=== PATIENT | female | born 1935 | race Caucasian/White ===

== ENCOUNTER → 2017-02-23 | Outpatient (CLI) | payer MEDICARE, BC ==
[2016-04-17 18:37] VITALS: BP 151/75
[~2017-02-23] MED LIST: AMIT25TA PO
[2017-02-23 10:49] LABS: BASO # 0.1 x10^3/uL (0.0-0.2); BASO % 1 % (0-3); EOS # 0.2 x10^3/uL (0.0-0.7); EOS % 3 % (0-3); HEMATOCRIT 41.7 % (36.0-47.0); HEMOGLOBIN 13.9 g/dL (12.0-15.5); LYMPH # 3.3 x10^3/uL (1.0-4.8); LYMPH % 39 % (24-48); MEAN CORPUSCULAR HEMOGLOBIN 29 pg (25-35); MEAN CORPUSCULAR HGB CONC 33 g/dL (31-37); MEAN CORPUSCULAR VOLUME 88 fL (79-100); MONO # 0.8 x10^3/uL (0.0-1.1); MONO % 9 % (0-9); NEUT # 4.1 x10^3uL (1.8-7.7); NEUT % 48 % (31-73); PLATELET COUNT 293 x10^3/uL (140-400); RED BLOOD COUNT 4.74 x10^6/uL (3.50-5.40); RED CELL DISTRIBUTION WIDTH 13.9 % (11.5-14.5); WHITE BLOOD COUNT 8.4 x10^3/uL (4.0-11.0)
[2017-02-23 10:56] LABS: CALCIUM 9.1 mg/dL (8.5-10.1); CREATININE 1.3 mg/dL (0.6-1.0); GFR 39.4; MAGNESIUM 2.1 mg/dL (1.8-2.4); POTASSIUM 4.1 mmol/L (3.5-5.1)
== END | disposition home or self-care (01) ==
LOC: LAB 10:15
PROVIDERS: ATTEND Nurse Practitioner
DX: R94.39 Abnormal result of other cardiovascular function study (principal)
CPT/HCPCS: 36415; 80048; 83735; 85025; 85610; 85730

== ENCOUNTER → 2017-05-31 | Outpatient (CLI) | payer MEDICARE, BC ==
[2016-04-17 18:37] VITALS: BP 151/75
[2017-05-31 11:57] LABS: BASO % 1 % (0-3); EOS # 0.2 x10^3/uL (0.0-0.7); EOS % 3 % (0-3); HEMATOCRIT 40.3 % (36.0-47.0); HEMOGLOBIN 13.9 g/dL (12.0-15.5); LYMPH # 2.5 x10^3/uL (1.0-4.8); LYMPH % 37 % (24-48); MEAN CORPUSCULAR HEMOGLOBIN 31 pg (25-35); MEAN CORPUSCULAR HGB CONC 35 g/dL (31-37); MEAN CORPUSCULAR VOLUME 89 fL (79-100); MONO # 0.6 x10^3/uL (0.0-1.1); MONO % 9 % (0-9); NEUT # 3.5 x10^3uL (1.8-7.7); NEUT % 51 % (31-73); PLATELET COUNT 309 x10^3/uL (140-400); RED BLOOD COUNT 4.52 x10^6/uL (3.50-5.40); RED CELL DISTRIBUTION WIDTH 13.3 % (11.5-14.5); WHITE BLOOD COUNT 6.8 x10^3/uL (4.0-11.0)
[2017-05-31 12:10] LABS: ALBUMIN 3.6 g/dL (3.4-5.0); CALCIUM 9.4 mg/dL (8.5-10.1); CREATININE 1.2 mg/dL (0.6-1.0); GFR 43.2; PHOSPHORUS 3.9 mg/dL (2.6-4.7); POTASSIUM 4.2 mmol/L (3.5-5.1)
[2017-06-01 22:08] LABS: CALCIUM PTH 9.6 mg/dL (8.7-10.3); CREATININE PTH 1.09 mg/dL (0.57-1.00); PTH INTACT 47 pg/mL (15-65)
== END | disposition home or self-care (01) ==
LOC: LAB 11:23
PROVIDERS: ATTEND Internal Medicine Nephrology
DX: I13.0 Hypertensive heart and chronic kidney disease with heart failure and stage 1 through stage 4 chronic kidney disease, or unspecified chronic kidney disease (principal); N18.3 Chronic kidney disease, stage 3 (moderate); N14.0 Analgesic nephropathy; I50.22 Chronic systolic (congestive) heart failure; D63.1 Anemia in chronic kidney disease; R60.0 Localized edema; Z68.41 Body mass index [BMI] 40.0-44.9, adult
CPT/HCPCS: 36415; 80069; 82728; 83540; 83550; 83735; 83970; 85025

== ENCOUNTER → 2017-09-06 | Outpatient (CLI) | payer MEDICARE, BC ==
[2016-04-17 18:37] VITALS: BP 151/75
[2017-09-06 11:39] LABS: ALBUMIN 3.7 g/dL (3.4-5.0); ALBUMIN/GLOBULIN RATIO 0.9 (1.0-1.7); CALCIUM 9.5 mg/dL (8.5-10.1); CREATININE 1.2 mg/dL (0.6-1.0); GFR 43.1; POTASSIUM 4.2 mmol/L (3.5-5.1); TOTAL BILIRUBIN 0.6 mg/dL (0.2-1.0); TOTAL PROTEIN 7.6 g/dL (6.4-8.2)
== END | disposition home or self-care (01) ==
LOC: LAB 10:47
PROVIDERS: ATTEND Nurse Practitioner
DX: E78.5 Hyperlipidemia, unspecified (principal); E55.9 Vitamin D deficiency, unspecified
CPT/HCPCS: 36415; 80053; 80061; 82306

== ENCOUNTER → 2017-10-09 | Outpatient (CLI) | payer MEDICARE, BC ==
[2016-04-17 18:37] VITALS: BP 151/75
[2017-10-09 11:24] LABS: CALCIUM 9.5 mg/dL (8.5-10.1); CREATININE 1.2 mg/dL (0.6-1.0); GFR 43.1
== END | disposition home or self-care (01) ==
LOC: LAB 09:38
PROVIDERS: ATTEND Nurse Practitioner
DX: I12.9 Hypertensive chronic kidney disease with stage 1 through stage 4 chronic kidney disease, or unspecified chronic kidney disease (principal); N18.3 Chronic kidney disease, stage 3 (moderate)
CPT/HCPCS: 36415; 80048

== ENCOUNTER → 2018-02-25 | Outpatient (CLI) | payer MEDICARE, BC ==
[2016-04-17 18:37] VITALS: BP 151/75
[2018-02-25 12:19] LABS: ALBUMIN 3.5 g/dL (3.4-5.0); ALBUMIN/GLOBULIN RATIO 0.9 (1.0-1.7); CALCIUM 9.4 mg/dL (8.5-10.1); CREATININE 1.1 mg/dL (0.6-1.0); GFR 47.7; TOTAL BILIRUBIN 0.6 mg/dL (0.2-1.0); TOTAL PROTEIN 7.3 g/dL (6.4-8.2)
== END | disposition home or self-care (01) ==
LOC: LAB 11:28
PROVIDERS: ATTEND Nurse Practitioner
DX: E78.5 Hyperlipidemia, unspecified (principal); I13.0 Hypertensive heart and chronic kidney disease with heart failure and stage 1 through stage 4 chronic kidney disease, or unspecified chronic kidney disease; I50.22 Chronic systolic (congestive) heart failure; N18.3 Chronic kidney disease, stage 3 (moderate); D63.1 Anemia in chronic kidney disease; E55.9 Vitamin D deficiency, unspecified; E03.9 Hypothyroidism, unspecified; Z96.653 Presence of artificial knee joint, bilateral; Z68.41 Body mass index [BMI] 40.0-44.9, adult
CPT/HCPCS: 36415; 80053; 80061

== ENCOUNTER 2018-12-21 18:54 | Emergency (ER) | payer MEDICARE, BC ==
[~2018-12-21] VITALS: Ht 154.9 cm; Wt 98.4 kg
--- NOTE | 2018-12-21 19:14 | ED.ADGEN ---
Past History Past Medical History: Anxiety, Arthritis, Constipation, Diverticulitis, Hypertension, Hypothyroid, Other Past Surgical History: Cholecystectomy, Knee Replacement Alcohol Use: None Drug Use: None Adult General Chief Complaint Chief Complaint ".. I ve been having problems with my bowels today... but I ve had years of problems with my bowel... maybe I ripped something down there... ".. " I always have problems.. it is either constipation or it is diarrhea... ever since my colon scopic eval. in 2002.. that doctor said I had too many kids..and everything was stretched out down there.. and *I did nt need another scope exam ever again because I was too old..." HPI HPI Patient is a 83 year old female who presents with severe generalized abdomen pain. Has some localization to Lt lower abdomen and rectal pain. Pt. reports unable to pass stool. States she feel like somethings is stuck in her rectal area. .. Patient has had problems with diarrhea and constipation the past. Has history of pelvic floor issues after of children vaginally. Patient denies any changes in baseline meds or bowel management. No recent travel. No specific ill contacts. Patient has history of multiple antibiotic and medica tion allergies and intolerances. No history of bad food. No history of trauma. No specific history of immunosuppression. Review of Systems Review of Systems Constitutional: Denies fever or chills [] Eyes: Denies change in visual acuity, redness, or eye pain [] HENT: Denies nasal congestion or sore throat [] Respiratory: Denies cough or shortness of breath [] Cardiovascular: No additional information not addressed in HPI [] GI: Complaints of lower abdominal pain, nausea,. Complaints of constipation. I Vomiting, bloody stools or diarrhea [] : Denies dysuria or hematuria [] Musculoskeletal: History of generalized arthritic joint pain] Integument: Denies rash or skin lesions [] Neurologic: Denies headache, focal weakness or sensory changes [] Endocrine: Denies polyuria or polydipsia [] All other systems were reviewed and found to be within normal limits, except as documented in this note. Family History Family History Noncontributory Current Medications Current Medications Current Medications Medications (Trade) Dose Ordered Sig/Edenilson Start Time Stop Time Status Last Admin Dose Admin Acetaminophen (Tylenol) 1,000 mg 1X ONCE 12/21/18 21:00 12/21/18 21:01 DC 12/21/18 21:47 1,000 MG Famotidine (Pepcid Vial) 20 mg 1X ONCE 12/21/18 21:00 12/21/18 21:01 DC 12/21/18 21:46 20 MG Fentanyl Citrate (Fentanyl 2ml Vial) 50 mcg 1X ONCE 12/21/18 21:00 12/21/18 21:01 DC Glycerin (Sani-Supp Adult) 1 supp 1X ONCE 12/22/18 00:00 12/22/18 00:01 DC 12/22/18 00:17 1 SUPP Iohexol (Omnipaque 240 Mg/ml) 50 ml 1X ONCE 12/21/18 23:00 12/21/18 23:01 DC 12/21/18 23:32 50 ML Iohexol (Omnipaque 300 Mg/ml) 75 ml 1X ONCE 12/21/18 23:00 12/21/18 23:01 DC 12/21/18 23:32 75 ML Lactated Ringer's 1,000 ml @ 100 mls/hr Q10H 12/21/18 21:00 12/22/18 02:13 DC 12/21/18 21:47 100 MLS/HR Levofloxacin/ Dextrose 100 ml @ 100 mls/hr 1X ONCE 12/21/18 23:00 12/21/18 23:59 DC 12/22/18 00:09 100 MLS/HR Magnesium Hydroxide (Milk Of Magnesia) 2,400 mg 1X ONCE 12/22/18 00:15 12/22/18 00:16 DC 12/22/18 00:13 2,400 MG Ondansetron HCl (Zofran) 8 mg 1X ONCE 12/21/18 21:00 12/21/18 21:01 DC 12/21/18 21:46 8 MG Allergies Allergies Allergies Coded Allergies Type Severity Reaction Last Updated Verified Cephalosporins Allergy Intermediate Hives 12/21/18 Yes Penicillins Allergy Intermediate Hives 12/21/18 Yes cephalexin Allergy Intermediate Hives 12/21/18 Yes Physical Exam Physical Exam Constitutional: Moderate acute distress, non-toxic appearance. [] HENT: Normocephalic, atraumatic, bilateral external ears normal, oropharynx moist, no oral exudates, nose normal. [] Eyes: PERRLA, EOMI, conjunctiva normal, no discharge. [] Neck: Normal range of motion, no tenderness, supple, no stridor. [] Cardiovascular:Heart rate regular rhythm, no murmur []PMI to the right. Lungs & Thorax: Bilateral breath sounds equal apex, basilar crackles on auscultation [] Abdomen: Bowel sounds normal, soft, generalized abdomen pain, distention, lower pelvic tenderness, , no pulsatile masses. . Exam shows small hemorrhoids- they do not appear to be excessively inflamed. Had a very large hard impacted stool ball. This was disimpacted digitally. A glycerin suppository placed. Patient did report relief after disimpacted. Old surgery scars. Skin: Warm, dry, no erythema, no rash. [] Poor turgor Back: No tenderness, no CVA tenderness. [] Extremities: No tenderness, no cyanosis, no clubbing, ROM intact, no edema. [] Scar right hip. Arthritic changes Neurologic: Alert and oriented X 3, normal motor function, normal sensory function, no focal deficits noted. [] Psychologic: Affect anxious, judgement normal, mood normal. [] Current Patient Data Vital Signs Vital Signs Date Time Temp Pulse Resp B/P (MAP) Pulse Ox O2 Delivery O2 Flow Rate FiO2 12/22/18 02:10 88 18 147/62 (90) 97 Room Air 12/21/18 19:00 97.5 Lab Results Laboratory Tests Test 12/21/18 20:25 12/21/18 20:30 White Blood Count 7.4 x10^3/uL (4.0-11.0) Red Blood Count 4.50 x10^6/uL (3.50-5.40) Hemoglobin 13.7 g/dL (12.0-15.5) Hematocrit 40.7 % (36.0-47.0) Mean Corpuscular Volume 90 fL (79-100) Mean Corpuscular Hemoglobin 31 pg (25-35) Mean Corpuscular Hemoglobin Concent 34 g/dL (31-37) Red Cell Distribution Width 12.6 % (11.5-14.5) Platelet Count 283 x10^3/uL (140-400) Neutrophils (%) (Auto) 63 % (31-73) Lymphocytes (%) (Auto) 26 % (24-48) Monocytes (%) (Auto) 8 % (0-9) Eosinophils (%) (Auto) 2 % (0-3) Basophils (%) (Auto) 1 % (0-3) Neutrophils # (Auto) 4.7 x10^3uL (1.8-7.7) Lymphocytes # (Auto) 1.9 x10^3/uL (1.0-4.8) Monocytes # (Auto) 0.6 x10^3/uL (0.0-1.1) Eosinophils # (Auto) 0.2 x10^3/uL (0.0-0.7) Basophils # (Auto) 0.0 x10^3/uL (0.0-0.2) Prothrombin Time 10.6 SEC (9.4-11.4) Prothrombin Time INR 1.0 (0.9-1.1) PTT 26 SEC (23-33) Sodium Level 141 mmol/L (136-145) Potassium Level 3.8 mmol/L (3.5-5.1) Chloride Level 106 mmol/L (98-107) Carbon Dioxide Level 27 mmol/L (21-32) Anion Gap 8 (6-14) Blood Urea Nitrogen 14 mg/dL (7-20) Creatinine 1.0 mg/dL (0.6-1.0) Estimated GFR (Cockcroft-Gault) 53.1 Glucose Level 98 mg/dL (70-99) Calcium Level 9.6 mg/dL (8.5-10.1) Total Bilirubin 0.5 mg/dL (0.2-1.0) Direct Bilirubin 0.2 mg/dL (0.0-0.2) Aspartate Amino Transferase (AST) 35 U/L (15-37) Alanine Aminotransferase (ALT) 52 U/L (14-59) Alkaline Phosphatase 82 U/L (46-116) Creatine Kinase 72 U/L (26-192) Troponin I Quantitative < 0.017 ng/mL (0-0.055) Total Protein 6.9 g/dL (6.4-8.2) Albumin 3.4 g/dL (3.4-5.0) Amylase Level 58 U/L (25-115) Lipase 160 U/L (73-393) Urine Opiates Screen Neg (NEG) Urine Methadone Screen Neg (NEG) Urine Barbiturates Neg (NEG) Urine Phencyclidine Screen Neg (NEG) Urine Amphetamine/Methamphetamine Neg (NEG) Urine Benzodiazepines Screen Neg (NEG) Urine Cocaine Screen Neg (NEG) Urine Cannabinoids Screen Neg (NEG) Urine Ethyl Alcohol Neg (NEG) Urine Collection Type Unknown Urine Color Yellow Urine Clarity Cloudy Urine pH 5.5 Urine Specific [place] 1.015 Urine Protein Neg (NEG-TRACE) Urine Glucose (UA) Neg mg/dL (NEG) Urine Ketones (Stick) Neg mg/dL (NEG) Urine Blood Trace (NEG) Urine Nitrite Pos (NEG) Urine Bilirubin Neg (NEG) Urine Urobilinogen Dipstick 0.2 mg/dL (0.2 mg/dL) Urine Leukocyte Esterase Small (NEG) Urine RBC Occ /HPF (0-2) Urine WBC 11-20 /HPF (0-4) Urine Squamous Epithelial Cells Mod /LPF Urine Bacteria Mod /HPF (0-FEW) EKG EKG My interpretation EKG shows a sinus rhythm at 73 with bundle branch block. Contour abnormality.[] Radiology/Procedures Radiology/Procedures [][address] [id number] IMAGING REPORT Signed PATIENT: DARINEL PERES ACCOUNT: [id number] : 1935 LOCATION: ER AGE: 83 SEX: F EXAM STATUS: REG ER ORD. PHYSICIAN: STEVE CASSIDY MD REASON: CONSTIPATION, LUQ ABDOMINAL PAIN PROCEDURE: ACUTE ABDOMEN SERIES Acute abdominal series with PA chest: Reason for examination: Constipation. Left upper quadrant abdominal pain. Comparison is made to previous study dated 12/26/2012. The heart size is normal. Mediastinum is unremarkable. Lung bal are clear. No acute bony abnormalities are seen in the chest. In the abdomen, there is no gross organomegaly. Gallbladder surgically absent with surgical clips in the right upper quadrant. There is no gross organomegaly. The bowel gas pattern is nonspecific with no abnormally dilated loops of bowel or evidence of bowel obstruction. There are calcifications probably representing phleboliths in the lower pelvis. But there is a new calcification in the left pelvis adjacent to a previously identified calcification which could represent a distal left ureteral calculus which appears to measure approximately 3.6 mm in greatest dimension. There are postop changes at the right hip. No acute bony abnormalities are seen. IMPRESSION: No acute cardiopulmonary disease. Nonspecific bowel gas pattern. Calcifications in the pelvis consistent with phleboliths but there is a new 3.6 mm calculus in the left pelvis which may represent a distal left ureteral calculus. Electronically signed by: Concepcion Roberts MD (12/21/2018 9:39 PM) [facility] DICTATED AND SIGNED BY: CONCEPCION ROBERTS MD DATE: 12/21/182138 CC: STEVE CASSIDY MD; LIU BRICE ~[facility] [address] [place] [id number] IMAGING REPORT Signed PATIENT: DARINEL PERES ACCOUNT: [id number] : 1935 LOCATION: ER AGE: 83 SEX: F EXAM STATUS: REG ER ORD. PHYSICIAN: STEVE CASSIDY MD REASON: pain in pelvis/rectal region, constipation x 4 days PROCEDURE: CT ABD PELV W/ORAL&IV CONTRAST EXAM: CT Abdomen and Pelvis with IV contrast CLINICAL HISTORY: Pelvic, rectal pain. 4 day history of constipation. History of cholecystectomy and appendectomy.. COMPARISON: Acute abdominal series 12/21/2018 TECHNIQUE: Helical CT of the abdomen and pelvis was performed following the administration of intravenous contrast. Axial, coronal and sagittal reformatted images were generated. PQRS compliance statement - One or more of the following individualized dose reduction techniques were utilized for this study: 1. Automated exposure control 2. Adjustment of the mA and/or kV according to patient size 3. Use of iterative reconstruction technique FINDINGS: Lower chest: Subpleural reticular opacities in the lower lobes likely scarring/atelectasis. Small hiatal hernia. Abdomen and Pelvis: Diffuse hepatic hypoattenuation may be seen with hepatic steatosis. Cholecystectomy clips are seen. No biliary ductal dilatation. Pancreas is unremarkable. Spleen is normal in appearance. Adrenal glands are unremarkable. Symmetric nephrograms. No focal renal lesion. No hydronephrosis. No hydroureter. Bladder is moderately distended but otherwise unremarkable. Moderate colonic stool content is seen most prominent in the rectum where it may represent a stercolith/fecalith. No associated inflammatory change. There has been an appendectomy. No small or large bowel dilatation to suggest bowel obstruction. Several prominent upper abdominal collaterals are seen. Changes of mesh hernia repair of a ventral abdominal hernia in the upper abdomen. Small fat-containing periumbilical hernia. Bones: Degenerative changes of the spine are seen. Changes of right hip arthroplasty results in streak artifact limiting evaluation of the pelvis. IMPRESSION: 1. Rounded appearance of the stool within the rectum and distal sigmoid a represent stercolith/fecalith, without evidence for associated inflammatory change. 2. Hepatic hypoattenuation may be seen with hepatic steatosis. Electronically signed by: Gregory Luna MD (12/21/2018 11:25 PM) [facility] DICTATED AND SIGNED BY: GREGORY LUNA MD DATE: 12/21/18 6091 CC: STEVE CASSIDY MD; LIU BRICE ~ Course & Med Decision Making Course & Med Decision Making Pertinent Labs and Imaging studies reviewed. (See chart for details) After discussed impaction, patient reports marked improvement. She is to stay on on bowel management program as previous directed. Patient to take Levaquin 500 mg daily for 5 days for UTI. Patient follow-up primary care. Patient return if any concerns [] Final Impression Final Impression 1. Abdomen /Rectal Pain[] 2. Constipation/ Stool Impaction 3. UTI 4. Hemorrhoids Dragon Disclaimer Dragon Disclaimer This electronic medical record was generated, in whole or in part, using a voice recognition dictation system. Discharge Summary Visit Information Final Diagnosis Problems Medical Problems: (1) Constipation Status: Acute (2) Fecal impaction in rectum Status: Acute (3) Urinary tract bacterial infections Status: Acute Brief Hospital Course Allergies Allergies Coded Allergies Type Severity Reaction Last Updated Verified Cephalosporins Allergy Intermediate Hives 12/21/18 Yes Penicillins Allergy Intermediate Hives 12/21/18 Yes cephalexin Allergy Intermediate Hives 12/21/18 Yes Vital Signs Vital Signs Date Time Temp Pulse Resp B/P (MAP) Pulse Ox O2 Delivery O2 Flow Rate FiO2 12/22/18 02:10 88 18 147/62 (90) 97 Room Air 12/21/18 19:00 97.5 Lab Results Laboratory Tests Test 12/21/18 20:25 12/21/18 20:30 White Blood Count 7.4 x10^3/uL (4.0-11.0) Red Blood Count 4.50 x10^6/uL (3.50-5.40) Hemoglobin 13.7 g/dL (12.0-15.5) Hematocrit 40.7 % (36.0-47.0) Mean Corpuscular Volume 90 fL (79-100) Mean Corpuscular Hemoglobin 31 pg (25-35) Mean Corpuscular Hemoglobin Concent 34 g/dL (31-37) Red Cell Distribution Width 12.6 % (11.5-14.5) Platelet Count 283 x10^3/uL (140-400) Neutrophils (%) (Auto) 63 % (31-73) Lymphocytes (%) (Auto) 26 % (24-48) Monocytes (%) (Auto) 8 % (0-9) Eosinophils (%) (Auto) 2 % (0-3) Basophils (%) (Auto) 1 % (0-3) Neutrophils # (Auto) 4.7 x10^3uL (1.8-7.7) Lymphocytes # (Auto) 1.9 x10^3/uL (1.0-4.8) Monocytes # (Auto) 0.6 x10^3/uL (0.0-1.1) Eosinophils # (Auto) 0.2 x10^3/uL (0.0-0.7) Basophils # (Auto) 0.0 x10^3/uL (0.0-0.2) Prothrombin Time 10.6 SEC (9.4-11.4) Prothromb Time International Ratio 1.0 (0.9-1.1) Activated Partial Thromboplast Time 26 SEC (23-33) Sodium Level 141 mmol/L (136-145) Potassium Level 3.8 mmol/L (3.5-5.1) Chloride Level 106 mmol/L (98-107) Carbon Dioxide Level 27 mmol/L (21-32) Anion Gap 8 (6-14) Blood Urea Nitrogen 14 mg/dL (7-20) Creatinine 1.0 mg/dL (0.6-1.0) Estimated GFR (Cockcroft-Gault) 53.1 Glucose Level 98 mg/dL (70-99) Calcium Level 9.6 mg/dL (8.5-10.1) Total Bilirubin 0.5 mg/dL (0.2-1.0) Direct Bilirubin 0.2 mg/dL (0.0-0.2) Aspartate Amino Transf (AST/SGOT) 35 U/L (15-37) Alanine Aminotransferase (ALT/SGPT) 52 U/L (14-59) Alkaline Phosphatase 82 U/L (46-116) Creatine Kinase 72 U/L (26-192) Troponin I Quantitative < 0.017 ng/mL (0-0.055) Total Protein 6.9 g/dL (6.4-8.2) Albumin 3.4 g/dL (3.4-5.0) Amylase Level 58 U/L (25-115) Lipase 160 U/L (73-393) Urine Opiates Screen Neg (NEG) Urine Methadone Screen Neg (NEG) Urine Barbiturates Neg (NEG) Urine Phencyclidine Screen Neg (NEG) Urine Amphetamine/Methamphetamine Neg (NEG) Urine Benzodiazepines Screen Neg (NEG) Urine Cocaine Screen Neg (NEG) Urine Cannabinoids Screen Neg (NEG) Urine Ethyl Alcohol Neg (NEG) Urine Collection Type Unknown Urine Color Yellow Urine Clarity Cloudy Urine pH 5.5 Urine Specific [place] 1.015 Urine Protein Neg (NEG-TRACE) Urine Glucose (UA) Neg mg/dL (NEG) Urine Ketones (Stick) Neg mg/dL (NEG) Urine Blood Trace (NEG) Urine Nitrite Pos (NEG) Urine Bilirubin Neg (NEG) Urine Urobilinogen Dipstick 0.2 mg/dL (0.2 mg/dL) Urine Leukocyte Esterase Small (NEG) Urine RBC Occ /HPF (0-2) Urine WBC 11-20 /HPF (0-4) Urine Squamous Epithelial Cells Mod /LPF Urine Bacteria Mod /HPF (0-FEW) Brief Hospital Course Ms. Peres is a 83 old female who presented with generalized abdomen pain. Found to have UTI and fecal impaction. Discharge Information Condition at Discharge: Improved, Stable Disposition/Orders: D/C to Home Dischare Medications Current Medications Lactated Ringer's 1,000 ml @ 100 mls/hr Q10H IV Last administered on 12/21/18at 21:47; Admin Dose 100 MLS/HR; Start 12/21/18 at 21:00; Stop 12/22/18 at 02:13; Status DC Ondansetron HCl (Zofran) 8 mg 1X ONCE IV Last administered on 12/21/18at 21:46; Admin Dose 8 MG; Start 12/21/18 at 21:00; Stop 12/21/18 at 21:01; Status DC Famotidine (Pepcid Vial) 20 mg 1X ONCE IVP Last administered on 12/21/18at 21:46; Admin Dose 20 MG; Start 12/21/18 at 21:00; Stop 12/21/18 at 21:01; Status DC Magnesium Hydroxide (Milk Of Magnesia) 2,400 mg 1X ONCE PO Last administered on 12/21/18at 21:47; Admin Dose 2,400 MG; Start 12/21/18 at 21:00; Stop 12/21/18 at 21:01; Status DC Acetaminophen (Tylenol) 1,000 mg 1X ONCE PO Last administered on 12/21/18at 21:47; Admin Dose 1,000 MG; Start 12/21/18 at 21:00; Stop 12/21/18 at 21:01; Status DC Fentanyl Citrate (Fentanyl 2ml Vial) 50 mcg 1X ONCE IV ; Start 12/21/18 at 21:00; Stop 12/21/18 at 21:01; Status DC Iohexol (Omnipaque 240 Mg/ml) 50 ml STK-MED ONCE .ROUTE ; Start 12/21/18 at 20:49; Stop 12/21/18 at 20:50; Status DC Iohexol (Omnipaque 240 Mg/ml) 50 ml 1X ONCE PO Last administered on 12/21/18at 23:32; Admin Dose 50 ML; Start 12/21/18 at 23:00; Stop 12/21/18 at 23:01; Status DC Iohexol (Omnipaque 300 Mg/ml) 75 ml 1X ONCE IV Last administered on 12/21/18at 23:32; Admin Dose 75 ML; Start 12/21/18 at 23:00; Stop 12/21/18 at 23:01; Status DC Levofloxacin/ Dextrose 100 ml @ 100 mls/hr 1X ONCE IV Last administered on 12/22/18at 00:09; Admin Dose 100 MLS/HR; Start 12/21/18 at 23:00; Stop 12/21/18 at 23:59; Status DC Glycerin (Sani-Supp Adult) 1 supp 1X ONCE OK Last administered on 12/22/18at 00:17; Admin Dose 1 SUPP; Start 12/22/18 at 00:00; Stop 12/22/18 at 00:01; Status DC Magnesium Hydroxide (Milk Of Magnesia) 2,400 mg 1X ONCE PO Last administered on 12/22/18at 00:13; Admin Dose 2,400 MG; Start 12/22/18 at 00:15; Stop 12/22/18 at 00:16; Status DC Active Scripts Active Suppository (Glycerin) 1 Each Supp.rect 1 Each RC DAILY PRN Levaquin (Levofloxacin) 500 Mg Tablet 500 Mg PO DAILY 5 Days Amitriptyline Hcl 25 Mg Tablet 1 Tab PO QHS Dragon Disclaimer This chart was dictated in whole or in part using Voice Recognition software in a busy, high-work load, and often noisy Emergency Department environment. It may contain unintended and wholly unrecognized errors or omissions. STEVE CASSIDY MD Dec 21, 2018 19:14
[2018-12-21] MEDS ORDERED: IOHEXOL 240 MG/ML 50ML VIAL. ONE (20:49)
[2018-12-21 20:54] LABS: BACTERIA,URINE MOD /HPF (0-FEW); BILIRUBIN,URINE NEG (NEG); CLARITY,URINE CLOUDY; COLOR,URINE YELLOW; GLUCOSE,URINE NEG (NEG); NITRITE,URINE POS (NEG); RBC,URINE OCC /HPF (0-2); SQUAMOUS EPITHELIAL CELL,UR MOD /LPF; UROBILINOGEN,URINE 0.2 mg/dL (0.2 mg/dL)
[2018-12-21] MEDS ORDERED: ACETAMINOPHEN 500 MG TABLET PO ONE (21:00)
[2018-12-21] MEDS ORDERED: FAMOTIDINE 20 MG/2 ML VIAL IVP ONE (21:00)
[2018-12-21] MEDS ORDERED: IV RINGERS SOLUTION,LACTATED 1,000 ML IV SCH (21:00)
[2018-12-21] MEDS ORDERED: ONDANSETRON PF 4 MG/2 ML VIAL. IV ONE (21:00)
[2018-12-21] MEDS ORDERED: MAGNESIUM HYDROXIDE 2,400 MG/30 ML ORAL.SUSP. PO ONE (21:00)
[2018-12-21 21:06] LABS: BASO % 1 % (0-3); EOS # 0.2 x10^3/uL (0.0-0.7); EOS % 2 % (0-3); HEMATOCRIT 40.7 % (36.0-47.0); HEMOGLOBIN 13.7 g/dL (12.0-15.5); LYMPH # 1.9 x10^3/uL (1.0-4.8); LYMPH % 26 % (24-48); MEAN CORPUSCULAR HEMOGLOBIN 31 pg (25-35); MEAN CORPUSCULAR HGB CONC 34 g/dL (31-37); MEAN CORPUSCULAR VOLUME 90 fL (79-100); MONO # 0.6 x10^3/uL (0.0-1.1); MONO % 8 % (0-9); NEUT # 4.7 x10^3uL (1.8-7.7); NEUT % 63 % (31-73); PLATELET COUNT 283 x10^3/uL (140-400); RED CELL DISTRIBUTION WIDTH 12.6 % (11.5-14.5); WHITE BLOOD COUNT 7.4 x10^3/uL (4.0-11.0)
[2018-12-21 21:11] LABS: ALBUMIN 3.4 g/dL (3.4-5.0); BARBITURATES NEG (NEG); BENZODIAZEPINES NEG (NEG); CALCIUM 9.6 mg/dL (8.5-10.1); CANNABINOIDS NEG (NEG); COCAINE NEG (NEG); DIRECT BILIRUBIN 0.2 mg/dL (0.0-0.2); GFR 53.1; METHADONE NEG (NEG); OPIATES NEG (NEG); PHENCYCLIDINE NEG (NEG); POTASSIUM 3.8 mmol/L (3.5-5.1); TOTAL BILIRUBIN 0.5 mg/dL (0.2-1.0); TOTAL PROTEIN 6.9 g/dL (6.4-8.2)
[2018-12-21 21:16] LABS: AMPHETAMINE/METHAMPHETAMINE NEG (NEG)
--- NOTE | 2018-12-21 21:42 | RAD ---
Acute abdominal series with PA chest: Reason for examination: Constipation. Left upper quadrant abdominal pain. Comparison is made to previous study dated 12/26/2012. The heart size is normal. Mediastinum is unremarkable. Lung bal are clear. No acute bony abnormalities are seen in the chest. In the abdomen, there is no gross organomegaly. Gallbladder surgically absent with surgical clips in the right upper quadrant. There is no gross organomegaly. The bowel gas pattern is nonspecific with no abnormally dilated loops of bowel or evidence of bowel obstruction. There are calcifications probably representing phleboliths in the lower pelvis. But there is a new calcification in the left pelvis adjacent to a previously identified calcification which could represent a distal left ureteral calculus which appears to measure approximately 3.6 mm in greatest dimension. There are postop changes at the right hip. No acute bony abnormalities are seen. IMPRESSION: No acute cardiopulmonary disease. Nonspecific bowel gas pattern. Calcifications in the pelvis consistent with phleboliths but there is a new 3.6 mm calculus in the left pelvis which may represent a distal left ureteral calculus. Electronically signed by: Concepcion Lewis MD (12/21/2018 9:39 PM) [facility]
[2018-12-21] MEDS ORDERED: IOHEXOL 300 MG/ML 75 ML VIAL. IV ONE (23:00)
[2018-12-21] MEDS ORDERED: IOHEXOL 240 MG/ML 50ML VIAL. PO ONE (23:00)
--- NOTE | 2018-12-21 23:28 | RAD ---
EXAM: CT Abdomen and Pelvis with IV contrast CLINICAL HISTORY: Pelvic, rectal pain. 4 day history of constipation. History of cholecystectomy and appendectomy.. COMPARISON: Acute abdominal series 12/21/2018 TECHNIQUE: Helical CT of the abdomen and pelvis was performed following the administration of intravenous contrast. Axial, coronal and sagittal reformatted images were generated. PQRS compliance statement - One or more of the following individualized dose reduction techniques were utilized for this study: 1. Automated exposure control 2. Adjustment of the mA and/or kV according to patient size 3. Use of iterative reconstruction technique FINDINGS: Lower chest: Subpleural reticular opacities in the lower lobes likely scarring/atelectasis. Small hiatal hernia. Abdomen and Pelvis: Diffuse hepatic hypoattenuation may be seen with hepatic steatosis. Cholecystectomy clips are seen. No biliary ductal dilatation. Pancreas is unremarkable. Spleen is normal in appearance. Adrenal glands are unremarkable. Symmetric nephrograms. No focal renal lesion. No hydronephrosis. No hydroureter. Bladder is moderately distended but otherwise unremarkable. Moderate colonic stool content is seen most prominent in the rectum where it may represent a stercolith/fecalith. No associated inflammatory change. There has been an appendectomy. No small or large bowel dilatation to suggest bowel obstruction. Several prominent upper abdominal collaterals are seen. Changes of mesh hernia repair of a ventral abdominal hernia in the upper abdomen. Small fat-containing periumbilical hernia. Bones: Degenerative changes of the spine are seen. Changes of right hip arthroplasty results in streak artifact limiting evaluation of the pelvis. IMPRESSION: 1. Rounded appearance of the stool within the rectum and distal sigmoid a represent stercolith/fecalith, without evidence for associated inflammatory change. 2. Hepatic hypoattenuation may be seen with hepatic steatosis. Electronically signed by: Gregory Betancur MD (12/21/2018 11:25 PM) [facility]
[2018-12-22] MEDS ORDERED: GLYCERIN ADULT 1 SUPP.RECT. PR ONE
[2018-12-22] MEDS ORDERED: MAGNESIUM HYDROXIDE 2,400 MG/30 ML ORAL.SUSP. PO ONE (00:15)
[2018-12-22] MEDS ORDERED: LEVO500T59 PO (00:56)
[2018-12-22] MEDS ORDERED: GLYC1SUP61 RC (00:58)
[2018-12-22 02:10] VITALS: BP 147/62
--- NOTE | 2018-12-22 07:02 | EKG ---
[address] [address] Test Date: 2018-12-21 Test Time: 21:07:13 Pat Name: DARINEL SANTOS Department: Room: Gender: F Interventional Technologist: : 1935 Requested By: STEVE CASSIDY Order Number: [id number] Reading MD: Measurements Intervals [place] Rate: 73 P: 137 DE: 172 QRS: -172 QRSD: 120 T: 101 QT: 406 QTc: 451 Interpretive Statements SINUS RHYTHM ABNORMAL RIGHT SUPERIOR AXIS DEVIATION R-S TRANSITION ZONE IN V LEADS DISPLACED TO THE LEFT CONSIDER RIGHT VENTRICULAR HYPERTROPHY QRS(T) CONTOUR ABNORMALITY CONSISTENT WITH HIGH LATERAL INFARCT AGE UNDETERMINED CONSIDER INFERIOR INFARCT ABNORMAL ECG RI6.01 No previous ECG available for comparison
== END 2018-12-22 02:10 | disposition home or self-care (01) ==
LOC: ER 18:54
DX: K59.00 Constipation, unspecified (principal); N39.0 Urinary tract infection, site not specified; B97.89 Other viral agents as the cause of diseases classified elsewhere; K64.9 Unspecified hemorrhoids; R11.2 Nausea with vomiting, unspecified; F41.9 Anxiety disorder, unspecified; M19.90 Unspecified osteoarthritis, unspecified site; I10 Essential (primary) hypertension; E03.9 Hypothyroidism, unspecified; Z79.899 Other long term (current) drug therapy; Z90.49 Acquired absence of other specified parts of digestive tract; Z88.1 Allergy status to other antibiotic agents; Z88.0 Allergy status to penicillin
CPT/HCPCS: 36415; 74022; 74177; 80048; 80076; 80307; 81001; 82150; 82550; 83690; 84484; 85025; 85610; 85730; 87086; 93005; 96361; 96365; 96366; 96375; 99285; J1956; J2405; J3490; J7120; Q9966; Q9967

== ENCOUNTER → 2019-02-25 | Outpatient (CLI) | payer MEDICARE, BC ==
[~2019-02-25] MED LIST changes: +GLYC1SUP61 RC; +LEVO500T59 PO
[2019-02-25 11:51] LABS: HEMOGLOBIN 13.6 g/dL (12.0-15.5)
[2019-02-25 12:09] LABS: ALBUMIN 3.4 g/dL (3.4-5.0); CALCIUM 9.3 mg/dL (8.5-10.1); CREATININE 1.1 mg/dL (0.6-1.0); GFR 47.6; PHOSPHORUS 3.7 mg/dL (2.6-4.7); POTASSIUM 3.8 mmol/L (3.5-5.1)
[2019-02-26 04:09] LABS: CALCIUM PTH 9.7 mg/dL (8.7-10.3); CREATININE PTH 0.95 mg/dL (0.57-1.00); PTH INTACT 43 pg/mL (15-65)
== END | disposition home or self-care (01) ==
LOC: LAB 11:08
PROVIDERS: ATTEND Internal Medicine Nephrology
DX: I12.9 Hypertensive chronic kidney disease with stage 1 through stage 4 chronic kidney disease, or unspecified chronic kidney disease (principal); N18.3 Chronic kidney disease, stage 3 (moderate); N14.0 Analgesic nephropathy; D63.1 Anemia in chronic kidney disease; R60.0 Localized edema; Z68.41 Body mass index [BMI] 40.0-44.9, adult
CPT/HCPCS: 36415; 80069; 82306; 83970; 85014; 85018

== ENCOUNTER 2019-04-30 14:25 | Emergency (ER) | payer MEDICARE, BC ==
[~2019-04-30] VITALS: Ht 154.9 cm; Wt 98.4 kg
[2019-04-30] MEDS ORDERED: IV NORMAL SALINE 1,000ML 1,000 ML IV ONE (15:15)
--- NOTE | 2019-04-30 15:29 | PHYS DOC ---
Past History Past Medical History: Anxiety, Arthritis, Constipation, Diverticulitis, Hypertension, Hypothyroid, Other Past Surgical History: Appendectomy, Cholecystectomy, Hysterectomy Alcohol Use: None Drug Use: None Adult General Chief Complaint Chief Complaint: CONSTIPATION HPI HPI 83-year-old female presents with concern for constipation. She is not a bowel movement for 5 days. Her PCP sent her to the emergency room. She has been able to manually extract a small amount large stool. She feels like she needs to go but can't. She has had this in the past but been well. She denies any other complaints. Review of Systems Review of Systems Constitutional: Denies fever or chills [] Eyes: Denies change in visual acuity, redness, or eye pain [] HENT: Denies nasal congestion or sore throat [] Respiratory: Denies cough or shortness of breath [] Cardiovascular: No additional information not addressed in HPI [] GI: constipation. Denies abdominal pain, nausea, vomiting, bloody stools or diarrhea [] : Denies dysuria or hematuria [] Musculoskeletal: Denies back pain or joint pain [] Integument: Denies rash or skin lesions [] Neurologic: Denies headache, focal weakness or sensory changes [] Endocrine: Denies polyuria or polydipsia [] All other systems were reviewed and found to be within normal limits, except as documented in this note. Current Medications Current Medications Current Medications Medications (Trade) Dose Ordered Sig/Edenilson Start Time Stop Time Status Last Admin Dose Admin Sodium Chloride 1,000 ml @ 1,000 mls/hr 1X ONCE 04/30/19 15:15 04/30/19 16:14 Allergies Allergies Allergies Coded Allergies Type Severity Reaction Last Updated Verified Cephalosporins Allergy Intermediate Hives 12/21/18 Yes Penicillins Allergy Intermediate Hives 12/21/18 Yes cephalexin Allergy Intermediate Hives 12/21/18 Yes Physical Exam Physical Exam Constitutional: Well developed, well nourished, no acute distress, non-toxic appearance. [] HENT: Normocephalic, atraumatic, bilateral external ears normal, oropharynx moist, no oral exudates, nose normal. [] Eyes: PERRLA, EOMI, conjunctiva normal, no discharge. [] Neck: Normal range of motion, no tenderness, supple, no stridor. [] Cardiovascular:Heart rate regular rhythm, no murmur [] Lungs & Thorax: Bilateral breath sounds clear to auscultation [] Abdomen: Bowel sounds normal, soft, no tenderness, no masses, no pulsatile masses. [] Skin: Warm, dry, no erythema, no rash. [] Back: No tenderness, no CVA tenderness. [] Extremities: No tenderness, no cyanosis, no clubbing, ROM intact, no edema. [] Neurologic: Alert and oriented X 3, normal motor function, normal sensory function, no focal deficits noted. [] Psychologic: Affect normal, judgement normal, mood normal. [] EKG EKG [] Radiology/Procedures Radiology/Procedures [] Impressions: EXAM: CHEST 1 VIEW History: Constipation COMPARISON: 12/21/2018 TECHNIQUE: Single portable radiograph of the chest Findings/ impression: Air distended bowel loops identified in the right mid abdomen. Feces and gas noted in the rectum. Nonspecific bowel gas pattern. CT abdomen pelvis can be considered for further evaluation. Electronically signed by: Waqas Kenny MD (04/30/2019 3:31 PM) [id number] DICTATED AND SIGNED BY: WAQAS KENNY MD DATE: 04/30/19 1531 CC: MARYELLEN KAPLAN DO; LIU BRICE ~ Course & Med Decision Making Course & Med Decision Making Pertinent Labs and Imaging studies reviewed. (See chart for details) The patient's enema did not work. She continued a fullness in the rectum. The nurse was able to do a digital rectal massage and patient did have stool output. Her KUB was unremarkable except for the rectal vault. The patient felt much better. She feels that she can go home now. She is stable for discharge at this time. [] Dragon Disclaimer Dragon Disclaimer This electronic medical record was generated, in whole or in part, using a voice recognition dictation system. Departure Departure: Impression: Primary Impression: Constipation by delayed colonic transit Disposition: HOME, SELF-CARE Condition: IMPROVED Referrals: LIU BRICE (PCP) Patient Instructions: Constipation, Adult, [id number] MARYELLEN KAPLAN DO Apr 30, 2019 15:29
--- NOTE | 2019-04-30 15:34 | RAD ---
EXAM: CHEST 1 VIEW History: Constipation COMPARISON: 12/21/2018 TECHNIQUE: Single portable radiograph of the chest Findings/ impression: Air distended bowel loops identified in the right mid abdomen. Feces and gas noted in the rectum. Nonspecific bowel gas pattern. CT abdomen pelvis can be considered for further evaluation. Electronically signed by: Waqas Kenny MD (04/30/2019 3:31 PM) [id number]
[2019-04-30 15:53] LABS: BASO % 1 % (0-3); EOS # 0.1 x10^3/uL (0.0-0.7); EOS % 2 % (0-3); HEMATOCRIT 40.3 % (36.0-47.0); HEMOGLOBIN 13.6 g/dL (12.0-15.5); LYMPH # 2.1 x10^3/uL (1.0-4.8); LYMPH % 31 % (24-48); MEAN CORPUSCULAR HEMOGLOBIN 31 pg (25-35); MEAN CORPUSCULAR HGB CONC 34 g/dL (31-37); MEAN CORPUSCULAR VOLUME 91 fL (79-100); MONO # 0.6 x10^3/uL (0.0-1.1); MONO % 9 % (0-9); NEUT # 3.9 x10^3uL (1.8-7.7); NEUT % 58 % (31-73); PLATELET COUNT 295 x10^3/uL (140-400); RED BLOOD COUNT 4.41 x10^6/uL (3.50-5.40); RED CELL DISTRIBUTION WIDTH 12.8 % (11.5-14.5); WHITE BLOOD COUNT 6.7 x10^3/uL (4.0-11.0)
[2019-04-30 16:03] VITALS: BP 128/69
[2019-04-30 16:06] LABS: ALBUMIN 3.4 g/dL (3.4-5.0); CALCIUM 9.5 mg/dL (8.5-10.1); CREATININE 1.1 mg/dL (0.6-1.0); GFR 47.6; TOTAL BILIRUBIN 0.6 mg/dL (0.2-1.0); TOTAL PROTEIN 6.9 g/dL (6.4-8.2)
[2019-04-30] MEDS ORDERED: SODIUM PHOSPHATES 19/7GM 133 ML ENEMA. PR ONE (16:45)
== END 2019-04-30 16:03 | disposition home or self-care (01) ==
LOC: ER 14:25
DX: K59.01 Slow transit constipation (principal); F41.9 Anxiety disorder, unspecified; M19.90 Unspecified osteoarthritis, unspecified site; I10 Essential (primary) hypertension; E03.9 Hypothyroidism, unspecified; Z90.49 Acquired absence of other specified parts of digestive tract; Z90.89 Acquired absence of other organs; Z90.710 Acquired absence of both cervix and uterus; Z88.1 Allergy status to other antibiotic agents; Z88.0 Allergy status to penicillin
CPT/HCPCS: 36415; 74018; 80053; 85025; 99285-25; J7030

== ENCOUNTER → 2019-12-02 | Outpatient (CLI) | payer MEDICARE, BC ==
--- NOTE | 2019-12-02 12:37 | RAD ---
PA and lateral chest radiographs 12/02/2019 CLINICAL HISTORY: Cough. PA and lateral digital radiographs of the chest were obtained. No previous studies are available for comparison. The cardiac silhouette is normal in size and configuration. The thoracic aorta is minimally tortuous. Atherosclerotic calcification of the thoracic aorta is seen. Degenerative changes are seen involving the thoracic spine. IMPRESSION: No acute abnormality is seen. Electronically signed by: Jerry Nicholas MD (12/02/2019 12:34 PM) [id number]
== END | disposition home or self-care (01) ==
LOC: PMG 10:38
PROVIDERS: ATTEND Physician Assistant Medical
DX: I70.0 Atherosclerosis of aorta (principal); M47.814 Spondylosis without myelopathy or radiculopathy, thoracic region
CPT/HCPCS: 71046